=== PATIENT | male | born 1980 | race Caucasian/White ===

== ENCOUNTER 2023-05-28 09:24 | Emergency (ER) | payer OTHER, SELFPAY ==
--- NOTE | 2023-05-28 09:26 | ED.EYEPROB ---
HPI - Eye Problem General Chief complaint: Eye Problems Stated complaint: Gantt eye Time Seen by Provider: 05/28/23 09:26 Source: patient and RN notes reviewed Mode of arrival: ambulatory Limitations: no limitations History of Present Illness HPI Narrative: 42-year-old male presents to the [facility] with left eye redness yesterday, was goopy and crusted this. No visual changes. Does not were contact lenses. Onset (ago): day(s) (1) Treatments Prior to Arrival: none Related Data Home Medications Medication Instructions Recorded Confirmed dextroamphetamine-amphetamine ER 20 mg PO DAILY 05/28/23 05/28/23 20 mg 24hr capsule,extend release (Adderall XR) eszopiclone 3 mg tablet (Lunesta) 3 mg PO HS 05/28/23 05/28/23 lorazepam 1 mg tablet 1 mg PO DAILY PRN Anxiety 05/28/23 05/28/23 topiramate 100 mg tablet 100 mg PO DAILY 05/28/23 05/28/23 Allergies Allergy/AdvReac Type Severity Reaction Status Date / Time No Known Allergies Allergy Verified 05/28/23 09:35 Review of Systems Review of Systems: All systems reviewed & are unremarkable except as noted in HPI and below Constitutional: Constitutional: Reports no additional constitutional complaints Eyes: Eyes: Reports as per HPI ENT: Reports system reviewed and no additional complaints, except as documented Cardiovascular: Cardiovascular: Reports no additional cardiovascular complaints, Denies chest pain and Denies dyspnea Respiratory: Respiratory: Reports no additional respiratory complaints, Denies chest congestion, Denies cough and Denies dyspnea Gastrointestinal: Gastrointestinal: Reports no additional gastrointestinal complaints, Denies abdominal pain, Denies nausea and Denies vomiting Musculoskeletal: Musculoskeletal: Reports no additional musculoskeletal complaints Integumentary/Breasts: Skin/Breast: Reports system reviewed and no additional complaints, except as docu Neurologic: Reports system reviewed and no additional complaints, except as documented Psychiatric: Psychiatric: Reports no additional psychiatric complaints Allergic/Immunologic: Allergic/Immunologic: Reports no additional allergic/immunologic complaints PMFSH Comments At the time of my signature, I reviewed and agree with the nursing past medical, surgical, social, and family history. There is no relevant family history pertinent to the patient complaint. Exam Const: General: cooperative, healthy appearing, comfortable, no acute distress, well developed, alert and well nourished Nutritional Appearance: well nourished Orientation/consciousness: patient oriented x3 Limitations: no limitations HENMT: Head: normal to inspection Ears: hearing grossly normal bilaterally and external ears normal Face/Nose/Sinus: Normal external nose present, Normal nares present, Normal nasal mucous membranes and turbinates present, No nasal discharge present and normal facial exam Face and sinus: normal facial exam, sinuses nontender and face symmetric Mouth: Yes Normal oral and palatal mucosa present, Yes lip normal and Yes moist mucous membranes Throat: posterior oropharynx normal and uvula midline Eyes: General: appearance normal, both eyes and all related structures Visual Major: normal visual major by confrontation Alignment and Position: alignment normal Periorbital: periorbital findings normal Eyelids: eyelids normal Conjunctivae: conjunctivae normal Sclera: sclerae normal Cornea: corneas normal Pupils: Equal, round and reactive pupils present EOM: EOMs intact bilaterally Neck: Neck: normal visual inspection, full ROM, no lymphadenopathy and no meningeal signs Chest: Chest palpation & inspection: normal inspection of the chest Resp: Effort & Inspection: normal respiratory effort and able to speak in complete sentences Auscultation: clear to auscultation bilaterally, no crackles, no rales, no rhonchi and no wheezes Cardio: Rate: regular rate Rhythm: regular rhythm Back/Spine/Pelvis: Ce
[2023-05-28 09:36] VITALS: BP 119/80; PULSE 85; RESP 16; TEMP 36.4; O2SAT 100
[2023-05-28 09:37] VITALS: BP 119/80; PULSE 85; RESP 16; TEMP 36.4; O2SAT 100
== END 2023-05-28 09:55 | disposition home or self-care (01) ==
PROVIDERS: Emergency Provider Nurse Practitioner
DX: H57.89 Other specified disorders of eye and adnexa (principal); F41.9 Anxiety disorder, unspecified; F90.9 Attention-deficit hyperactivity disorder, unspecified type
CPT/HCPCS: 99213; G0463

== ENCOUNTER 2024-08-09 13:16 | Emergency (ER) | payer OTHER, SELFPAY ==
[2024-08-09 13:22] VITALS: BP 113/73; PULSE 82; RESP 16; TEMP 36.4; O2SAT 100
--- NOTE | 2024-08-09 13:26 | ED_ITS ---
HPI - Ear Problem General Chief complaint: Ear Stated complaint: right ear Time Seen by Provider: 08/09/24 13:26 Source: patient Mode of arrival: ambulatory Limitations: no limitations History of Present Illness HPI Narrative: 43-year-old male presents complaining decreased from the right ear. Once the this morning when he woke. Has tried to pop the ear by squeezing his nose without relief. Denies ear pain, drainage, tinnitus or dizziness, or nasal congestion. MD Complaint: ear pain Related Data Home Medications Medication Instructions Recorded Confirmed dextroamphetamine-amphetamine ER 20 mg PO DAILY 05/28/23 05/28/23 20 mg 24hr capsule,extend release (Adderall XR) eszopiclone 3 mg tablet (Lunesta) 3 mg PO HS 05/28/23 05/28/23 lorazepam 1 mg tablet 1 mg PO DAILY PRN Anxiety 05/28/23 05/28/23 topiramate 100 mg tablet 100 mg PO DAILY 05/28/23 05/28/23 Allergies Allergy/AdvReac Type Severity Reaction Status Date / Time No Known Allergies Allergy Verified 08/09/24 13:26 Review of Systems Review of Systems: CONSTITUTIONAL: Denies malaise, chills, or fever. EYES: Denies visual changes, redness, or discharge. ENT: Denies rhinorrhea, congestion, sinus pain, and sore throat. Reports decreased hearing CARDIOVASCULAR: Denies chest pain, palpitations, or edema. RESPIRATORY: Denies cough or dyspnea. GASTROINTESTINAL: Denies abdominal pain, nausea, vomiting, diarrhea SKIN: Denies rash or itching. MUSCULOSKELETAL: Denies myalgia. NEUROLOGIC: Denies headache. All systems reviewed & are unremarkable except as noted in HPI and below [facility] Comments At time of signature, agree with nursing past medical, surgical, social and family history. There is no relevant family history pertinent to the presenting complaint Exam Narrative: GENERAL: Well-appearing EYES: PERRLA, conjunctivae clear ENT: Nares clear. Mucous membranes moist. TMs pearly gomez with dull light reflex bilaterally; no tragal tenderness. Oropharynx not erythematous without lesions. Tonsils not enlarged and without exudate, no drooling, no hoarseness, no trismus, uvula midline. NECK: Supple. No lymphadenopathy CHEST: Clear to auscultation, breath sounds equal. HEART: Regular rate and rhythm. NEURO: Alert and oriented x3. PSYCH: Normal mood and affect Course Course Emergency Course: Patient is aware of diagnosis, understands and agrees to treatment plan. Anticipatory guidance given. Patient agrees to follow-up as directed and is aware of reasons to seek care at the emergency department. Portions of this record may have been created with voice recognition software Level of Care: Express Care Visit Vital Signs Vital signs: Vital Signs Temperature 97.6 F 08/09/24 13:22 Pulse Rate 82 08/09/24 13:22 Respiratory Rate 16 08/09/24 13:22 Blood Pressure 113/73 08/09/24 13:22 Pulse Oximetry 100 08/09/24 13:22 Temperature 97.6 F 08/09/24 13:22 Pulse Rate 82 08/09/24 13:22 Respiratory Rate 16 08/09/24 13:22 Blood Pressure 113/73 08/09/24 13:22 Pulse Oximetry 100 08/09/24 13:22 Reviewed Medical Decision Making MDM Narrative Medical decision making narrative: Discussed physical exam findings most consistent with ETD. Advised supportive measures and signs/symptoms to go to the ER. Patient is appropriate for outpatient treatment and follow-up. Differential Diagnosis Differential Diagnosis: Coronavirus, strep pharyngitis, allergic rhinitis, upper respiratory tract infection, sinusitis, rhinosinusitis, nasopharyngitis, viral pharyngitis, otitis media, otitis externa, eustachian tube dysfunction, foreign body, cerumen impact ion. Vital Signs Vital Signs: Vital Signs Temperature 97.6 F 08/09/24 13:22 Pulse Rate 82 08/09/24 13:22 Respiratory Rate 16 08/09/24 13:22 Blood Pressure 113/73 08/09/24 13:22 Pulse Oximetry 100 08/09/24 13:22 Temperature 97.6 F 08/09/24 13:22 Pulse Rate 82 08/09/24 13:22 Respiratory Rate 16 08/09/24 13:22 Blood Pressure 113/73 08/09/24 13:22 Pulse Oximetry 100 08/09/24 13:22 Discharge Plan Discharge Clinical Impression: Decreased hearing of right ear Patient Disposition: Home, Self-Care Condition: Stable Instructions: Antibiotic Form, Allergies (ED) Additional Instructions: Symptoms are likely due to eustachian tube dysfunction Recommendations: antihistamine such as Benadryl, Zyrtec or Kamilla Flonase nasal spray, 1 spray in each nostril once daily until symptoms improve Symptomatic treatment includes: rest, fluids, and increase humidity of the air at home. Tylenol or ibuprofen every 8 hours as needed to reduce fever, pain Please schedule a follow-up visit with your personal physician. If your symptoms persist, change or worsen significantly, go to the emergency department for further evaluation. Prescriptions: No Action dextroamphetamine-amphetamine [Adderall XR] 20 mg Capsule,Extended Release 24hr 20 mg PO DAILY lorazepam 1 mg Tablet 1 mg PO DAILY PRN (Reason: Anxiety) topiramate 100 mg Tablet 100 mg PO DAILY eszopiclone [Lunesta] 3 mg Tablet 3 mg PO HS erythromycin 5 mg/gram (0.5 %) ointment 0.5 inch LEFT EYE TID 5 Days Qty: 3.5 0RF Follow-up/Referrals: Steven Larson MD [Primary Care Provider] - Time of Disposition: 13:34
== END 2024-08-09 13:36 | disposition home or self-care (01) ==
PROVIDERS: Emergency Provider Nurse Practitioner Family; PCP Family Medicine
DX: H91.91 Unspecified hearing loss, right ear (principal); F90.9 Attention-deficit hyperactivity disorder, unspecified type; F41.9 Anxiety disorder, unspecified
CPT/HCPCS: 99211; G0463

== ENCOUNTER 2024-10-07 13:38 | Emergency (ER) | payer OTHER, SELFPAY ==
--- NOTE | ~2024-10-07 | CT_ITS ---
CTA brain carotid Ordering provider: Caden Carcamo History: . vertigo . Comparison: None. Technique: CT angiogram head and neck was performed following timed intravenous injection of contrast . Thin slice axial images and reformatted coronal images were obtained. Three dimensional reformatted images of the brain were also obtained using a [employer] workstation. DLP: 1129 mGy-cm FINDINGS: HEAD: --ANTERIOR AND MIDDLE CEREBRAL ARTERIES AND BRANCHES: Normal caliber and contour. --INTERNAL CAROTID ARTERIES: No significant atheromatous disease. --BASILAR ARTERY AND BRANCHES: Normal caliber and contour. No atheromatous disease. --POSTERIOR CEREBRAL ARTERIES: Normal caliber and contour --POSTERIOR COMMUNICATING ARTERIES: Not well visualized likely related to congenital absence or small size. --ANEURYSM: None visualized. --BRAIN: Please refer to report of CT head performed the same day. --BONES AND SUPERFICIAL SOFT TISSUES: Please refer to report of CT head performed the same day. --PARANASAL SINUSES AND MASTOIDS: Please refer to report of CT head done the same day. NECK: --RIGHT CERVICAL CAROTID SYSTEM: No significant atheromatous disease of the carotid bulb and proximal internal carotid artery. Percent stenosis per NASCET criteria is 0%. No carotid dissection. --LEFT CERVICAL CAROTID SYSTEM: No significant atheromatous disease of the carotid bulb and proximal internal carotid artery. Percent stenosis per NASCET criteria is 0%. No carotid dissection. --VERTEBRAL ARTERIES: The left vertebral artery is markedly diminutive along its course extending fro m the origin in the neck. The right vertebral artery demonstrates normal caliber and contour. --VISUALIZED AORTIC ARCH AND BRANCHING VESSELS: Mild atheromatous disease but no significant stenosis . --SOFT TISSUES: 0 unremarkable --CERVICAL SPINE: No significant degenerative disease within the cervical spine.. IMPRESSION: 1. Diminutive left vertebral artery. 2. Otherwise, unremarkable CTA head and neck. 3. Percent stenosis per NASCET criteria is 0% Reviewed, dictated and finalized at location A. [employer]INEER
--- NOTE | ~2024-10-07 | CT_ITS ---
CT brain wo con Ordering provider: Katlin Man PA-C History: 43 years Male with . dizziness . Comparison: None. Technique: CT of the head without contrast. Radiation reduction technique utilized. The dose-length product was 605.33 mGy-cm. FINDINGS: BRAIN PARENCHYMA AND CSF SPACES: No midline shift, mass effect or hemorrhage. The brain parenchyma a nd CSF spaces are otherwise normal. VISUALIZED PARANASAL SINUSES: Well aerated. MASTOIDS: Well aerated. BONES: The bones appear intact. SOFT TISSUES: Visualized nasopharynx is normal. Superficial soft tissues are normal. IMPRESSION: No acute intracranial findings. Reviewed, dictated and finalized at location A. [employer]S AND MEASURES
--- NOTE | ~2024-10-07 | XR_ITS ---
XR chest 2V Ordering provider: Katlin Man PA-C History: 43 years Male with . dizziness . Comparison: None. FINDINGS: MEDIASTINUM: The cardiac silhouette is not enlarged. LUNGS: No infiltrates, effusions or pneumothorax. OTHER: No free air under the diaphragm. IMPRESSION: No acute cardiopulmonary pathology. Reviewed, dictated and finalized at location A. TENANCE OF WAY SUPERINTENDENT
[2024-10-07 14:27] VITALS: BP 117/57; PULSE 103; RESP 18; TEMP 36.7; O2SAT 100
--- NOTE | 2024-10-07 17:13 | ED_ITS ---
HPI - Dizziness General Chief Complaint: Dizziness <Katlin Man PA-C - Last Filed: 10/08/24 16:33> Stated Complaint: NECK POPPED LAST NIGHT INTERMITTENT DIZZINESS <Katlin Man PA-C - Last Filed: 10/08/24 16:33> Time Seen by Provider: 10/07/24 17:13 <Katlin Man PA-C - Last Filed: 10/08/24 16:33> Focused HPI: This is a 43 year old male that presents to the ER for dizziness. Reports room spinning dizziness. This has been ongoing since last night when popping his neck. Worse with certain position changes. Reports pain and tingling down his left arm. GENERAL: Well-appearing, well-nourished, and in no acute distress. HEAD: Normocephalic, atraumatic. CHEST: Clear to auscultation. ?No respiratory distress. HEART: Regular rate and rhythm.? NEURO: ?Alert and oriented x3. Patient screened in triage and initial orders placed.? ?Additional care and disposition to be based upon?diagnostic testing and treatment. <Katlin Man PA-C - Last Filed: 10/08/24 16:33> History of Present Illness HPI Narrative: I agree with the above HPI Patient states the dizziness is intermittent and worse when lying down flat or turning his head quickly. Patient states that the left arm tingling has resolved and he suspects this was most likely related to lying on the floor to alleviate back pain. <Caden Carcamo MD - Last Filed: 10/08/24 06:43> Related Data Home Medications: Home Medications ?Medication ?Instructions ?Recorded ?Confirmed ?Last Taken ?Type dextroamphetamine-amphetamine ER 20 mg PO DAILY 05/28/23 05/28/23 Unknown History 20 mg 24hr capsule,extend release (Adderall XR) eszopiclone 3 mg tablet (Lunesta) 3 mg PO HS 05/28/23 05/28/23 Unknown History lorazepam 1 mg tablet 1 mg PO DAILY PRN Anxiety 05/28/23 05/28/23 Unknown History topiramate 100 mg tablet 100 mg PO DAILY 05/28/23 05/28/23 Unknown History <Katlin Man PA-C - Last Filed: 10/08/24 16:33> Allergies/Adverse Reactions: Allergies Allergy/AdvReac Type Severity Reaction Status Date / Time No Known Allergies Allergy Verified 10/07/24 13:39 <Katlin Man PA-C - Last Filed: 10/08/24 16:33> Review of Systems 2 Review of Systems: All systems reviewed & are unremarkable except as noted in HPI and below <Caden Carcamo MD - Last Filed: 10/08/24 06:43> Exam 2 Narrative: APPEARANCE: Well appearing, no pain, no distress, well-nourished. HEAD: normocephalic, atraumatic. EYES: PERRLA/EOMI, conjunctivae clear. NOSE: Normal no drainage EARS:TMS clear with good light reflex. THROAT: Pharynx clear, no exudate. NECK: Supple. No adenopathy, no masses. RESPIRATORY: Airway patent, respirations nonlabored. Clear to auscultation bilaterally, no rales, rhonchi, wheezing. CARDIOVASCULAR: Regular rate and rhythm without murmurs rubs or gallops. ABDOMINAL: Soft, nontender, nondistended, normal bowel sounds MUSCULOSKELETAL: Moves all extremities. Strength/ROM intact, No edema, No calf tenderness. NEURO: Alert. Cranial nerves II through XII intact. Good gait. Good coordination SKIN: Warm, dry. Normal Color <Caden Carcamo MD - Last Filed: 10/08/24 06:43> Course Vital Signs Vital signs: Vital Signs Temperature 98.0 F 10/07/24 14:27 Pulse Rate 103 H 10/07/24 14:27 Respiratory Rate 18 10/07/24 14:27 Blood Pressure 117/57 L 10/07/24 14:27 Pulse Oximetry 100 10/07/24 14:27 Oxygen Delivery Room Air 10/07/24 14:27 Temperature 98.0 F 10/07/24 14:27 Pulse Rate 71 10/07/24 23:42 Respiratory Rate 15 10/07/24 23:42 Blood Pressure 112/84 10/07/24 23:42 Pulse Oximetry 100 10/07/24 23:42 Oxygen Delivery Room Air 10/07/24 14:27 <Katlin Man PA-C - Last Filed: 10/08/24 16:33> Vital Signs Temperature 98.0 F 10/07/24 14:27 Pulse Rate 103 H 10/07/24 14:27 Respiratory Rate 18 10/07/24 14:27 Blood Pressure 117/57 L 10/07/24 14:27 Pulse Oximetry 100 10/07/24 14:27 Oxygen Delivery Room Air 10/07/24 14:27 Temperature 98.0 F 10/07/24 14:27 Pulse Rate 71 10/07/24 23:42 Respiratory Rate 15 10/07/24 23:42 Blood Pressure 112/84 10/07/24 23:42 Pulse Oximetry 100 10/07/24 23:42 Oxygen Delivery Room Air 10/07/24 14:27 <Caden Carcamo MD - Last Filed: 10/08/24 06:43> MDM - Dizziness MDM Narrative Medical decision making narrative: 43-year-old male presents emergency department for evaluation for vertigo symptoms that are worsened with movement. Upon arrival emergency department patient states he was unable to induce the dizziness. Patient was treated with meclizine for suspected vertigo. CT was negative. With patient complaining of a sensation of a pop in his neck while he was turning his head a CTA was ordered to evaluate for any vascular injury. CTA was negative. However decided to leave prior to the CTA being resulted. He did sign the AMA form but patient was discharged home with meclizine for symptoms. Patient was encouraged of close follow-up with primary care physician. Patient was also encouraged to return to the emergency department if he had any worsening symptoms. <Caden Carcamo MD - Last Filed: 10/08/24 06:43> Differential Diagnosis Differential diagnosis: Likely benign paroxysmal positional vertigo, orthostatic hypotension, vertebral basilar insufficiency, acute vestibular neuronitis and transient cerebral ischemia <Caden Carcamo MD - Last Filed: 10/08/24 06:43> Lab Data Attestation: I reviewed the patient's lab results. <Caden Carcamo MD - Last Filed: 10/08/24 06:43> Result diagrams: 10/07/24 18:31 10/07/24 18:31 <Katlin Man PA-C - Last Filed: 10/08/24 16:33> Labs: Lab Results 10/07/24 Range/Units 18:31 WBC 5.8 (4.5-10.0) K/mm3 RBC 4.41 L (4.6-6.20) M/mm3 Hgb 14.1 (14.0-18.0) g/dL Hct 41.2 L (42.0-52.0) % MCV 93.4 (80-100) fl MCH 32.0 (26-34) pg MCHC 34.2 (32-36) g/dl RDW 14.2 (11.5-14.5) % Plt Count 211 (150-375) k/mm3 MPV 9.8 (7.4-10.4) fl Immature Gran % (Auto) 0.2 (0-0.5) % Neut % (Auto) 49.1 (45.5-73.1) % Lymph % (Auto) 41.1 (18.3-44.2) % [place] % (Auto) 6.3 (2.6-8.5) % Eos % (Auto) 2.4 (0-4.4) % Baso % (Auto) 0.9 (0.2-1.2) % Lymph # (Auto) 2.40 (0.9-3.2) K/mm3 [place] # (Auto) 0.4 (0.1-0.6) K/mm3 Eos # (Auto) 0.1 (0-0.3) K/mm3 Baso # (Auto) 0.1 (0.0-0.1) K/mm3 Abs Immat Gran (auto) 0.01 (0.00-0.031) K/mm3 Absolute Neuts (auto) 2.9 (1.3-6.7) K/mm3 Absolute Nucleated RBC 0.000 (0.0-0.012) K/mm3 Nucleated RBC % 0.0 (0.0-0.2) % PT 13.9 (11.1-14.7) Seconds INR 1.0 APTT 33.2 (22.3-36.8) Seconds Sodium 138 (137-145) mmol/L Potassium 4.3 (3.4-5.0) mmol/L Chloride 103 (98-107) mmol/L Carbon Dioxide 28 (22-30) mmol/L Anion Gap 7 (4-12) mmol/L BUN 16 (9-20) mg/dL Creatinine 1.01 (0.7-1.3) mg/dL Estim Creat Clear Calc 100 ml/min Estimated GFR > 60 (59 - ) Glucose 83 (65-110) mg/dL Calcium 9.5 (8.4-10.2) mg/dL Total Bilirubin 0.8 (0.2-1.3) mg/dL AST 20 (17-59) U/L ALT 15 (6-50) U/L Alkaline Phosphatase 52 (38-126) U/L Total Protein 7.0 (6.3-8.2) g/dL Albumin 4.4 (3.5-5.1) g/dL <Katlin Man PA-C - Last Filed: 10/08/24 16:33> Lab Results 10/07/24 Range/Units 18:31 WBC 5.8 (4.5-10.0) K/mm3 RBC 4.41 L (4.6-6.20) M/mm3 Hgb 14.1 (14.0-18.0) g/dL Hct 41.2 L (42.0-52.0) % MCV 93.4 (80-100) fl MCH 32.0 (26-34) pg MCHC 34.2 (32-36) g/dl RDW 14.2 (11.5-14.5) % Plt Count 211 (150-375) k/mm3 MPV 9.8 (7.4-10.4) fl Immature Gran % (Auto) 0.2 (0-0.5) % Neut % (Auto) 49.1 (45.5-73.1) % Lymph % (Auto) 41.1 (18.3-44.2) % [place] % (Auto) 6.3 (2.6-8.5) % Eos % (Auto) 2.4 (0-4.4) % Baso % (Auto) 0.9 (0.2-1.2) % Lymph # (Auto) 2.40 (0.9-3.2) K/mm3 [place] # (Auto) 0.4 (0.1-0.6) K/mm3 Eos # (Auto) 0.1 (0-0.3) K/mm3 Baso # (Auto) 0.1 (0.0-0.1) K/mm3 Abs Immat Gran (auto) 0.01 (0.00-0.031) K/mm3 Absolute Neuts (auto) 2.9 (1.3-6.7) K/mm3 Absolute Nucleated RBC 0.000 (0.0-0.012) K/mm3 Nucleated RBC % 0.0 (0.0-0.2) % PT 13.9 (11.1-14.7) Seconds INR 1.0 APTT 33.2 (22.3-36.8) Seconds Sodium 138 (137-145) mmol/L Potassium 4.3 (3.4-5.0) mmol/L Chloride 103 (98-107) mmol/L Carbon Dioxide 28 (22-30) mmol/L Anion Gap 7 (4-12) mmol/L BUN 16 (9-20) mg/dL Creatinine 1.01 (0.7-1.3) mg/dL Estim Creat Clear Calc 100 ml/min Estimated GFR > 60 (59 - ) Glucose 83 (65-110) mg/dL Calcium 9.5 (8.4-10.2) mg/dL Total Bilirubin 0.8 (0.2-1.3) mg/dL AST 20 (17-59) U/L ALT 15 (6-50) U/L Alkaline Phosphatase 52 (38-126) U/L Total Protein 7.0 (6.3-8.2) g/dL Albumin 4.4 (3.5-5.1) g/dL <Caden Carcamo MD - Last Filed: 10/08/24 06:43> Imaging Data Radiologist's impression: Impressions Chest X-Ray 10/07/24 18:10 IMPRESSION: No acute cardiopulmonary pathology. Head CT 10/07/24 18:14 IMPRESSION: No acute intracranial findings. Overnight read CTA head impression No acute occlusion, severe stenosis or aneurysm. CTA neck impression: No significant stenosis or dissection <Caden Carcamo MD - Last Filed: 10/08/24 06:43> Critical Care Time Critical Care Time Critical Care Time: No <Katlin Man PA-C - Last Filed: 10/08/24 16:33> Discharge Plan Discharge Clinical Impression: Vertigo <Katlin Man PA-C - Last Filed: 10/08/24 16:33> Patient Disposition: Home, Self-Care <Katlin Man PA-C - Last Filed: 10/08/24 16:33> Condition: Stable <Katlin Man PA-C - Last Filed: 10/08/24 16:33> Instructions: Antibiotic Form, Vertigo (ED), Benign Paroxysmal Positional Vertigo (ED) <Katlin Man PA-C - Last Filed: 10/08/24 16:33> Additional Instructions: You left prior to your CT being resulted. Have close follow-up with your primary care physician. Cuisine as needed for vertigo control. <Katlin Man PA-C - Last Filed: 10/08/24 16:33> Patient Language: Maltese <Katlin Man PA-C - Last Filed: 10/08/24 16:33> Prescriptions: New meclizine 25 mg tablet 25 mg PO BID PRN (Reason: dizziness) 7 Days Qty: 14 0RF No Action dextroamphetamine-amphetamine [Adderall XR] 20 mg Capsule,Extended Release 24hr 20 mg PO DAILY lorazepam 1 mg Tablet 1 mg PO DAILY PRN (Reason: Anxiety) topiramate 100 mg Tablet 100 mg PO DAILY eszopiclone [Lunesta] 3 mg Tablet 3 mg PO HS erythromycin 5 mg/gram (0.5 %) ointment 0.5 inch LEFT EYE TID 5 Days Qty: 3.5 0RF <Katlin Mna PA-C - Last Filed: 10/08/24 16:33> Follow-up/Referrals: [place],Masoud Salazar MD [Primary Care Provider] - <Katlin Man PA-C - Last Filed: 10/08/24 16:33>
--- NOTE | 2024-10-07 17:14 | ECG_ITS ---
Test Date: 2024-10-07 20:24:42 Measurements Intervals [place] Rate: 77 P: 64 ID: [id number] QRS: 74 QRSD: 106 T: 52 QT: 342 QTc: 388 Interpretive Statements SINUS RHYTHM NONSPECIFIC T-WAVE ABNORMALITY ABNORMAL ECG Electronically Signed On 10-08-2024 08:24:15 TRADER by Jose Marrero M.D.
[2024-10-07 18:37] LABS: Basophils Absolute Auto 0.1 K/mm3 (0.0-0.1); Basophils Percent Auto 0.9 % (0.2-1.2); Eosinophils Absolute Auto 0.1 K/mm3 (0-0.3); Eosinophils Percent Auto 2.4 % (0-4.4); Hematocrit 41.2 % (42.0-52.0); Hemoglobin 14.1 g/dL (14.0-18.0); Immature Granulocyte Absolute 0.01 K/mm3 (0.00-0.031); Immature Granulocyte Percent A 0.2 % (0-0.5); Lymphocytes Percent Auto 41.1 % (18.3-44.2); Mean Corpuscular HGB Conc 34.2 g/dl (32-36); Mean Corpuscular Volume 93.4 fl (80-100); Mean Platelet Volume 9.8 fl (7.4-10.4); Monocytes Absolute Auto 0.4 K/mm3 (0.1-0.6); Monocytes Percent Auto 6.3 % (2.6-8.5); Neutrophils Absolute Auto 2.9 K/mm3 (1.3-6.7); Neutrophils Percent Auto 49.1 % (45.5-73.1); Platelet Count Result 211 k/mm3 (150-375); Red Blood Count 4.41 M/mm3 (4.6-6.20); Red Cell Distribution Width 14.2 % (11.5-14.5); White Blood Count 5.8 K/mm3 (4.5-10.0)
[2024-10-07 18:50] LABS: Alanine Aminotransferase 15 U/L (6-50); Albumin Level 4.4 g/dL (3.5-5.1); Alkaline Phosphatase 52 U/L (38-126); Anion Gap 7 mmol/L (4-12); Aspartate Amino Transferase 20 U/L (17-59); Bilirubin,Total 0.8 mg/dL (0.2-1.3); Blood Urea Nitrogen 16 mg/dL (9-20); Calcium 9.5 mg/dL (8.4-10.2); Carbon Dioxide 28 mmol/L (22-30); Chloride 103 mmol/L (98-107); Estimated CRCL calculation 100 ml/min; Estimated Glomerular Filt Rate > 60; Glucose 83 mg/dL (65-110); Potassium 4.3 mmol/L (3.4-5.0); Sodium 138 mmol/L (137-145)
[2024-10-07 18:55] LABS: Prothrombin Time 13.9 Seconds (11.1-14.7)
[2024-10-07 18:56] LABS: Partial Thromboplastin Time 33.2 Seconds (22.3-36.8)
[2024-10-07] MEDS: MECLIZINE HCL 25 MG TABLET PO (21:29)
[2024-10-07 21:30] VITALS: BP 118/82; PULSE 73; RESP 15; O2SAT 100
[2024-10-07 23:42] VITALS: BP 112/84; PULSE 71; RESP 15; O2SAT 100
== END 2024-10-07 23:46 | disposition home or self-care (01) ==
PROVIDERS: Physician Assistant; Emergency Provider Emergency Medicine; PCP Family Medicine
DX: R42 Dizziness and giddiness (principal)
CPT/HCPCS: 36415; 70450; 70496; 70498; 71046; 80053; 85025; 85610; 85730; 93005; 99284; A9270; Q9967

== ENCOUNTER 2025-01-31 09:30 | Emergency (ER) | payer OTHER, SELFPAY ==
[2025-01-31 09:39] VITALS: BP 146/90; PULSE 82; RESP 16; TEMP 36.8; O2SAT 100
--- NOTE | 2025-01-31 09:55 | ED.SKABFB ---
HPI - Skin/Abscess/Foreign Bdy General Chief complaint: Skin/Abscess/Foreign Body Stated complaint: INSECT BITES Time Seen by Provider: 01/31/25 09:55 Source: patient Mode of arrival: ambulatory Limitations: no limitations Related Data Home Medications ?Medication ?Instructions ?Recorded ?Confirmed ?Last Taken ?Type dextroamphetamine-amphetamine ER 20 mg PO DAILY 05/28/23 05/28/23 Unknown History 20 mg 24hr capsule,extend release (Adderall XR) eszopiclone 3 mg tablet (Lunesta) 3 mg PO HS 05/28/23 05/28/23 Unknown History lorazepam 1 mg tablet 1 mg PO DAILY PRN Anxiety 05/28/23 05/28/23 Unknown History topiramate 100 mg tablet 100 mg PO DAILY 05/28/23 05/28/23 Unknown History Allergies Allergy/AdvReac Type Severity Reaction Status Date / Time No Known Allergies Allergy Verified 10/07/24 13:39 Review of Systems Review of Systems: CONSTITUTIONAL: Denies body aches, fever, chills, or sweats. EYES: Denies visual changes, redness, or discharge. ENT: Denies rhinorrhea, congestion CARDIOVASCULAR: Denies chest pain, palpitations, or edema. RESPIRATORY: Denies cough or dyspnea. GASTROINTESTINAL: Denies abdominal pain, nausea, vomiting, or diarrhea. SKIN: MUSCULOSKELETAL: Denies back pain, joint pain, or myalgia. NEUROLOGIC: Denies headache, numbness, tingling, or weakness. PMFSH Comments At time of signature, I have reviewed and agree with nursing past medical, surgical, social and family history unless otherwise noted. Please see nursing chart for further information. There is no relevant family history pertinent to the presenting complaint Exam Narrative: GENERAL: Well-appearing HEAD: Normocephalic, atraumatic. EYES: conjunctivae clear, and EOMI. ENT: Mucous membranes moist. Oropharynx without edema, erythema or lesions. NECK: Supple. No lymphadenopathy CHEST: Clear to auscultation. HEART: Regular rate and rhythm. SKIN: Warm, dry. NEURO: Alert and oriented x3. Course Course Emergency Course: Patient is aware of diagnosis, understands and agrees to treatment plan. Anticipatory guidance given. Patient agrees to follow-up as directed and is aware of reasons to seek care at the emergency department. Portions of this record may have been created with voice recognition software Level of Care: [facility] Visit Vital Signs Vital signs: Vital Signs Temperature 98.2 F 01/31/25 09:39 Pulse Rate 82 01/31/25 09:39 Respiratory Rate 16 01/31/25 09:39 Blood Pressure 146/90 H 01/31/25 09:39 Pulse Oximetry 100 01/31/25 09:39 Temperature 98.2 F 01/31/25 09:39 Pulse Rate 82 01/31/25 09:39 Respiratory Rate 16 01/31/25 09:39 Blood Pressure 146/90 H 01/31/25 09:39 Pulse Oximetry 100 01/31/25 09:39 Reviewed MDM - Skin/Abscess/Foreign Bdy MDM Narrative Medical decision making narrative: Instructed patient to go to nearest ER immediately for any worsening symptoms including but not limited to: fever, spreading rash, pain, sore throat, headache, dizziness, chest pain, trouble breathing, or any symptoms concerning to the patient. Differential Diagnosis Differential diagnosis: Likely abscess of skin or subcutaneous tissue, viral exanthem, dermatophytosis, urticaria, herpes zoster, cellulitis, eczema, insect bites, impetigo and contact dermatitis Discharge Plan Discharge Patient Language: [place] Prescriptions: No Action dextroamphetamine-amphetamine [Adderall XR] 20 mg Capsule,Extended Release 24hr 20 mg PO DAILY lorazepam 1 mg Tablet 1 mg PO DAILY PRN (Reason: Anxiety) topiramate 100 mg Tablet 100 mg PO DAILY eszopiclone [Lunesta] 3 mg Tablet 3 mg PO HS erythromycin 5 mg/gram (0.5 %) ointment 0.5 inch LEFT EYE TID 5 Days Qty: 3.5 0RF meclizine 25 mg tablet 25 mg PO BID PRN (Reason: dizziness) 7 Days Qty: 14 0RF Follow-up/Referrals: Enrique,Masoud Salazar MD [Primary Care Provider] -
--- NOTE | 2025-01-31 10:14 | ED_ITS ---
HPI - Skin/Abscess/Foreign Bdy General Chief complaint: Skin/Abscess/Foreign Body Stated complaint: INSECT BITES Time Seen by Provider: 01/31/25 09:55 Source: patient Mode of arrival: ambulatory Limitations: no limitations History of Present Illness HPI narrative: Patient is a 44-year-old male who presents to the clinic with complaints of a skin infection to his face and left arm. He is unsure if he had a pimple or if he had bug bites. He did state that he tried to pop the area and then later used a needle to try to drain it. Denies any fever, chills, body aches nausea, vomiting, or diarrhea. Related Data Home Medications ?Medication ?Instructions ?Recorded ?Confirmed ?Last Taken ?Type dextroamphetamine-amphetamine ER 20 mg PO DAILY 05/28/23 05/28/23 Unknown History 20 mg 24hr capsule,extend release (Adderall XR) eszopiclone 3 mg tablet (Lunesta) 3 mg PO HS 05/28/23 05/28/23 Unknown History lorazepam 1 mg tablet 1 mg PO DAILY PRN Anxiety 05/28/23 05/28/23 Unknown History topiramate 100 mg tablet 100 mg PO DAILY 05/28/23 05/28/23 Unknown History Allergies Allergy/AdvReac Type Severity Reaction Status Date / Time No Known Allergies Allergy Verified 10/07/24 13:39 Review of Systems Review of Systems: CONSTITUTIONAL: Denies body aches, fever, chills, or sweats. EYES: Denies visual changes, redness, or discharge. ENT: Denies rhinorrhea, congestion. CARDIOVASCULAR: Denies chest pain, palpitations, or edema. RESPIRATORY: Denies cough or dyspnea. GASTROINTESTINAL: Denies abdominal pain, nausea, vomiting, or diarrhea. SKIN: ?Reports skin infection to face and left arm. MUSCULOSKELETAL: Denies back pain, joint pain, or myalgia. NEUROLOGIC: Denies headache, numbness, tingling, or weakness. All systems reviewed & are unremarkable except as noted in HPI and below PMFSH Comments At time of signature, I have reviewed and agree with nursing past medical, surgical, social and family history unless otherwise noted. Please see nursing chart for further information. There is no relevant family history pertinent to the presenting complaint. Exam Narrative: GENERAL: Well-appearing HEAD: Normocephalic, atraumatic. EYES: ?conjunctivae clear, and EOMI. ENT: Mucous membranes moist. Oropharynx without edema, erythema or lesions. NECK: Supple. No lymphadenopathy CHEST: Clear to auscultation. HEART: Regular rate and rhythm. SKIN: Warm, dry. 0.5 cm scabbed, dried lesion to chin and red scabbed area noted to left arm. No fluctuance. NEURO: ?Alert and oriented x3.? Course Course Level of Care: Express Care Visit Vital Signs Vital signs: Vital Signs Temperature 98.2 F 01/31/25 09:39 Pulse Rate 82 01/31/25 09:39 Respiratory Rate 16 01/31/25 09:39 Blood Pressure 146/90 H 01/31/25 09:39 Pulse Oximetry 100 01/31/25 09:39 Temperature 98.2 F 01/31/25 09:39 Pulse Rate 82 01/31/25 09:39 Respiratory Rate 16 01/31/25 09:39 Blood Pressure 146/90 H 01/31/25 09:39 Pulse Oximetry 100 01/31/25 09:39 Reviewed MDM - Skin/Abscess/Foreign Bdy MDM Narrative Medical decision making narrative: Discussed physical exam findings. Antibiotic prescribed for skin infection. Advised supportive measures and signs/symptoms to go to the ER. Pt is appropriate for outpatient treatment and follow up. Differential Diagnosis Differential diagnosis: Likely cellulitis, insect bites and other (bacterial skin infection) Critical Care Time Critical Care Time Critical Care Time: No Discharge Plan Discharge Clinical Impression: Bacterial skin infection Patient Disposition: Home Condition: Stable Instructions: Antibiotic Form, Acute Wounds (DC) Additional Instructions: Take antibiotic as prescribed. Use mupirocin as prescribed. Keep the area clean and dry - cleanse with warm water and mild soap and allow to fully dry. Keep it open to air (no bandages) Watch for worsening symptoms including pain, redness, swelling, streaking, pus/drainage, fever. Go to the ER with any of these symptoms or concerns. Follow up with primary care provider in 1 week as needed. Patient Language: [place] Island[place] Prescriptions: New cephalexin 500 mg capsule 500 mg PO Q12H 5 Days Qty: 10 0RF mupirocin [Centany] 2 % ointment 1 applic topical BID 7 Days Qty: 22 0RF No Action dextroamphetamine-amphetamine [Adderall XR] 20 mg Capsule,Extended Release 24hr 20 mg PO DAILY lorazepam 1 mg Tablet 1 mg PO DAILY PRN (Reason: Anxiety) topiramate 100 mg Tablet 100 mg PO DAILY eszopiclone [Lunesta] 3 mg Tablet 3 mg PO HS erythromycin 5 mg/gram (0.5 %) ointment 0.5 inch LEFT EYE TID 5 Days Qty: 3.5 0RF meclizine 25 mg tablet 25 mg PO BID PRN (Reason: dizziness) 7 Days Qty: 14 0RF Follow-up/Referrals: Enrique,Masoud Salazar MD [Primary Care Provider] - Time of Disposition: 10:28
== END 2025-01-31 10:31 | disposition home or self-care (01) ==
PROVIDERS: PCP Family Medicine
DX: L08.9 Local infection of the skin and subcutaneous tissue, unspecified (principal); B96.89 Other specified bacterial agents as the cause of diseases classified elsewhere; F41.9 Anxiety disorder, unspecified; F90.9 Attention-deficit hyperactivity disorder, unspecified type
CPT/HCPCS: 99213; G0463

== ENCOUNTER 2025-08-28 10:23 | Emergency (ER) | payer OTHER, SELFPAY ==
[2025-08-28 10:30] VITALS: BP 127/78; PULSE 77; RESP 16; TEMP 36.9; O2SAT 100
--- NOTE | 2025-08-28 10:38 | ED.SKABFB ---
HPI - Skin/Abscess/Foreign Bdy General Chief complaint: Skin/Abscess/Foreign Body Stated complaint: Rash Time Seen by Provider: 08/28/25 10:30 Source: patient and RN notes reviewed Mode of arrival: ambulatory Limitations: no limitations History of Present Illness HPI narrative: 44-year-old male patient presents to the [facility] complaining of rash to his chest. Patient says bed by the last 3 weeks. Patient is still a red bump under his right chest over the last couple days it has became increasingly pruritic, patient has been scratching at it to this pruritus. Patient putting mupirocin ointment it without any relief. Patient has any fevers body aches, chills, pain, drainage Memory other symptoms. Related Data Home Medications ?Medication ?Instructions ?Recorded ?Confirmed ?Last Taken ?Type dextroamphetamine-amphetamine ER 20 mg PO DAILY 05/28/23 05/28/23 Unknown History 20 mg 24hr capsule,extend release (Adderall XR) eszopiclone 3 mg tablet (Lunesta) 3 mg PO HS 05/28/23 05/28/23 Unknown History lorazepam 1 mg tablet 1 mg PO DAILY PRN Anxiety 05/28/23 05/28/23 Unknown History topiramate 100 mg tablet 100 mg PO DAILY 05/28/23 05/28/23 Unknown History Allergies Allergy/AdvReac Type Severity Reaction Status Date / Time No Known Allergies Allergy Verified 10/07/24 13:39 Review of Systems Review of Systems: CONSTITUTIONAL: Denies fever, chills, or sweats. EYES: Denies visual changes, redness, or discharge. ENT: Denies rhinorrhea, congestion, sore throat, or otalgia. CARDIOVASCULAR: Denies chest pain, palpitations, or edema. RESPIRATORY: Denies cough or dyspnea. GASTROINTESTINAL: Denies abdominal pain, nausea, vomiting, or diarrhea. GENITOURINARY: Denies dysuria or hematuria. SKIN: Positive for rash and itching. MUSCULOSKELETAL: Denies back pain, joint pain, or myalgia. NEUROLOGIC: Denies headache, numbness, or weakness. PSYCHIATRIC: Denies anxiety or depression. All other systems reviewed are negative, except as documented in HPI. PMFSH Comments At the time of my signature, I reviewed and agree with the nursing past medical, surgical, social, and family history. There is no relevant family history pertinent to the patient complaint. Exam Narrative: GENERAL: This is a well-nourished, well-developed adult, in no apparent distress. They are non ill-appearing, nontoxic appearing. HEAD: normocephalic, atraumatic. EYES: Sclera clear/white. Conjunctiva normal. Vision is grossly intact. Extraocular movements intact EARS: External ears normal, Hearing grossly intact. NOSE: External nose normal THROAT: Mucous membranes moist, NECK: Neck supple, CARDIOVASCULAR: Regular rate and rhythm RESPIRATORY: Respiratory rate normal, respiratory effort nonlabored, no respiratory distress SKIN: Chest: Area of erythema be low the right nipple. It is excoriated. Is measuring approximately 2 cm x 2 cm. Nontender to palpate, no warmth, no area of fluctuance, no induration. It is pruritic. No other suspicious lesions or rashes. NEURO: awake, alert, and oriented to person, place and time. There were no obvious focal neurologic abnormalities. EXTREMITIES: No joint tenderness, effusion, or edema noted. BACK: Nontender without deformity. No CVA tenderness. Course Course Level of Care: Express Care Visit Vital Signs Vital signs: Vital Signs Temperature 98.5 F 08/28/25 10:30 Pulse Rate 77 08/28/25 10:30 Respiratory Rate 16 08/28/25 10:30 Blood Pressure 127/78 08/28/25 10:30 Pulse Oximetry 100 08/28/25 10:30 Temperature 98.5 F 08/28/25 10:30 Pulse Rate 77 08/28/25 10:30 Respiratory Rate 16 08/28/25 10:30 Blood Pressure 127/78 08/28/25 10:30 Pulse Oximetry 100 08/28/25 10:30 [facility] MDM Narrative Medical decision making narrative: Patient has small rash under his right nipple. Given pruritus will give him a steroid cream. Discussed physical exam findings. Advised supportive measures and signs/symptoms to go to the ER. Pt is appropriate for outpt treatment and f/u. Differential Diagnosis Differential Diagnosis: Allergic reaction, hives, contact dermatitis, cellulitis Critical Care Time Critical Care Time Critical Care Time: No Discharge Plan Discharge Clinical Impression: Rash Patient Disposition: Home Condition: Stable Instructions: Acute Rash (ED) Additional Instructions: Use the steroid cream as directed. You may use calamine lotion, camphor,, Benadryl cream as needed for itchiness symptoms. You may also take Zyrtec or Claritin as needed for allergy or itchiness symptoms. Wash the skin daily with mild soap and water. Follow-up PCP in 3-5 days. If you develop any worsening redness, swelling, discharge, fevers, breathing problems, drainage, pain, or any other concerns please go to the ER immediately. Patient Language: Greek Prescriptions: New triamcinolone acetonide 0.5 % cream 1 applic topical BID 7 Days Qty: 15 0RF Rx Instructions: Apply to affected area. No Action dextroamphetamine-amphetamine [Adderall XR] 20 mg Capsule,Extended Release 24hr 20 mg PO DAILY lorazepam 1 mg Tablet 1 mg PO DAILY PRN (Reason: Anxiety) topiramate 100 mg Tablet 100 mg PO DAILY eszopiclone [Lunesta] 3 mg Tablet 3 mg PO HS mupirocin [Centany] 2 % ointment 1 applic topical BID 7 Days Qty: 22 0RF Follow-up/Referrals: Enrique,Masoud Salazar MD [Primary Care Provider, Unknown] Time of Disposition: 10:37
== END 2025-08-28 10:43 | disposition home or self-care (01) ==
PROVIDERS: PCP Family Medicine
DX: R21 Rash and other nonspecific skin eruption (principal); F90.9 Attention-deficit hyperactivity disorder, unspecified type; F41.9 Anxiety disorder, unspecified
CPT/HCPCS: 99213; G0463